=== PATIENT | male | born 1975 | race Two or more races ===

== ENCOUNTER 2021-03-18 05:55 | Emergency (ER) | payer BC ==
[~2021-03-18] VITALS: Ht 177.8 cm; Wt 104.3 kg
[2021-03-18 06:20] VITALS: BP 133/86
[2021-03-18 06:51] LABS: Basophils # (auto) 0.1 10 ^3/uL (0-0.2); Basophils % (auto) 0.5 % (0.0-2.0); Eosinophils # (auto) 0.1 10 ^3/uL (0-0.8); Eosinophils % (auto) 0.4 % (0.0-7.0); Hematocrit 44.9 % (41.0-53.0); Hemoglobin 15.2 g/dL (13.5-17.5); Lymphocytes # (auto) 2.1 10 ^3/uL (0.4-5.4); Lymphocytes % (auto) 17.5 % (10.0-50.0); Mean Corpuscular Hemoglobin 29.1 pg (28.0-32.0); Mean Corpuscular Hgb Conc. 33.8 g/dL (32.0-36.0); Mean Corpuscular Volume 86.2 fL (80.0-100.0); Monocytes % (auto) 16.4 % (0.0-12.0); Neutrophils % (auto) 65.2 % (37.0-80.0); Red Cell Distribution Width 13.6 % (11.8-14.3); White Blood Cell 12.2 10^3/uL (4.4-10.8)
[2021-03-18 07:08] LABS: Calcium 8.6 mg/dL (8.5-10.1); Chloride 108 mmol/L (98-107); Potassium 3.5 mmol/L (3.5-5.1); Sodium 139 mmol/L (136-145)
[2021-03-18 07:12] LABS: Albumin 3.2 g/dL (3.4-5.0); Anion Gap 7 (5-15); BUN/Creatinine Ratio 6.8; Blood Urea Nitrogen 8 mg/dL (7-18); Carbon Dioxide 24 mmol/L (21-32); GFR African American 85 mL/min; GFR Non-African American 71 mL/min; Glucose 104 mg/dL (74-106)
[2021-03-18 07:25] LABS: Alanine Aminotransferase 22 U/L (16-61); Alkaline Phosphatase 65 U/L (45-117); Aspartate Aminotransferase 13 U/L (15-37); Bilirubin, Total 0.2 mg/dL (0.2-1.0); Total Protein 7.4 g/dL (6.4-8.2)
== END 2021-03-18 17:54 | disposition left against medical advice (07) ==
LOC: ER 05:55
DX: R07.89 Other chest pain (principal); R51.9 Headache, unspecified; Z53.21 Procedure and treatment not carried out due to patient leaving prior to being seen by health care provider
CPT/HCPCS: 36415; 80053; 83880; 84484; 85025; 93005